=== PATIENT | female | born 1995 | race Caucasian/White ===

== ENCOUNTER 2019-10-21 15:12 | Emergency (ER) | payer OTHER ==
[~2019-10-21] VITALS: Ht 149.9 cm; Wt 68.0 kg
[~2019-10-21 15:12] MED LIST: FERR-252 PO; IBUP-974 PO
[2019-10-21 16:32] VITALS: BP 123/73
[2019-10-21 16:33] LABS: BASOPHILS % (AUTO) 0.7 % (0.0-2.0); EOSINOPHILS % (AUTO) 0.7 % (0.0-4.0); HEMATOCRIT 38.1 % (36-48); HEMOGLOBIN 12.9 g/dL (12.0-16.0); LYMPHOCYTES # (AUTO) 1.8 K/uL (2.5-16.5); LYMPHOCYTES % (AUTO) 33.4 % (20.5-51.1); MEAN CORPUSCULAR HEMOGLOBIN 30 pg (27-31); MEAN CORPUSCULAR HGB CONC 34 g/dL (33-37); MEAN CORPUSCULAR VOLUME 89.1 fL (80-94); MONOCYTES # (AUTO) 0.4 K/uL (0.8-1.0); MONOCYTES % (AUTO) 7.6 % (1.7-9.3); NEUTROPHILS % (AUTO) 57.6 % (42.2-75.2); PLATELET COUNT (AUTO) 181 K/uL (140-450); RED BLOOD CELL COUNT(AUTO) 4.28 MIL/uL (4.20-5.40); RED CELL DISTRIBUTION WIDTH 13.2 % (11.6-13.7); WHITE BLOOD COUNT (AUTO) 5.2 K/uL (4.8-10.8)
--- NOTE | 2019-10-21 16:36 | NUR ---
WAIT AT LOBBY.
[2019-10-21 16:49] LABS: ALBUMIN 4.2 g/dL (3.4-5.0); ANION GAP 13.1 (8-16); CARBON DIOXIDE 27.6 mmol/L (21-32); CREATININE 0.7 mg/dL (0.6-1.3); POTASSIUM 3.7 mmol/L (3.5-5.1); TOTAL BILIRUBIN 0.3 mg/dL (0.0-1.0)
--- NOTE | 2019-10-21 16:55 | NUR ---
PT TO ULTRASOUND
[2019-10-21 17:15] LABS: BILIRUBIN,URINE NEGATIVE (NEGATIVE); BLOOD, URINE 3+ (NEGATIVE); LEUKOCYTE ESTERASE ,URINE TRACE (NEGATIVE); NITRITE, URINE POSITIVE (NEGATIVE); UGLUCOSE NEGATIVE (NEGATIVE)
[2019-10-21 17:23] LABS: APPEARANCE,URINE HAZY (CLEAR); COLOR,URINE BLOODY (YELLOW)
[2019-10-21 17:37] LABS: RBC,URINE TOO NUMEROUS TO COUN /HPF (0-5)
--- NOTE | 2019-10-21 17:53 | NUR ---
PT AMB TO BED 11.
--- NOTE | 2019-10-21 17:55 | NUR ---
24/F C/O VAGINAL BLEEDING DURING X 3 DAYS WITH SMALL CLOTS. ONLY USED 1 PAD TODAY. ALSO STATES CRAMPY LOWER ABD PAIN X TODAY. DENIES N/V. LMP 07/30 APPEARS NAD. VSS 4TH , 2 LIVING. HX- DENIES
--- NOTE | 2019-10-21 17:57 | NUR ---
DR. CABAN EVALUATING PT AT BEDSIDE
--- NOTE | 2019-10-21 18:02 | NUR ---
Female Roll Contour Grinder (MYSELF) accompanied DR. CABAN FOR female patient Pelvic Exam.
[2019-10-21] MEDS ORDERED: cefTRIAXone 1,000 MG in LIDOCAINE MPF 1% 2.1 ML IM ONE (18:05)
[2019-10-21] MEDS ORDERED: cefTRIAXone 1,000 MG VIAL ONE (18:20)
[2019-10-21] MEDS ORDERED: LIDOCAINE MPF 1% 5 ML ONE (18:20)
--- NOTE | 2019-10-21 18:31 | NUR ---
WET [place] SAMPLE AND CHLAMYDIA/GC CULTURE WALKED TO LAB BY BRENDA WELCH
--- NOTE | 2019-10-21 19:11 | NUR ---
REPORT TO BAILEY WELCH, TRANSFER OF CARE AT THIS TIME
--- NOTE | 2019-10-21 19:13 | NUR ---
RECIEVED REPORT FROM ROSETTE WELCH. TRANSFER OF CARE AT THIS TIME.
[2019-10-21 19:51] VITALS: BP 123/84
[2019-10-24 06:12] LABS: CHLAMYDIA TRACHOMATIS AMP DNA Negative (Negative)
== END 2019-10-21 19:51 | disposition home or self-care (01) ==
LOC: MED 15:12
DX: O20.8 Other hemorrhage in early pregnancy (principal); O23.41 Unspecified infection of urinary tract in pregnancy, first trimester; Z3A.11 11 weeks gestation of pregnancy; Z79.899 Other long term (current) drug therapy
CPT/HCPCS: 36415; 76817; 80053; 81001; 84702; 85025; 86900; 86901; 87086; 87210; 96372; 99284; J0696; J2001; Q0092